=== PATIENT | female | born 1995 | race Caucasian/White ===

== ENCOUNTER 2016-08-13 07:33 | Emergency (ER) ==
[2016-08-13 07:55] LABS: MANUAL DIFF NEEDED? NO
[2016-08-13 08:02] LABS: BASO% 0.2 % (0.0-0.8); EOS# 0.07 X1000 (0.0-0.7); EOS% 1.3 % (0.0-10.0); HEMATOCRIT 38.2 % (37.0-47.0); IMM GRAN# 0.02 X1000 (0.0-0.04); IMM GRAN% 0.4 % (0.0-0.5); LYMPH# 2.38 X1000 (1.2-3.4); LYMPH% 45.2 % (20.5-51.1); MCH 27.6 PG (27-31); MCHC 31.4 g/dL (33-37); MCV 87.8 FL (81-99); MONO% 5.7 % (1.7-9.3); NEUT% 47.2 % (42.2-75.2); PLT 281 X1000 (130-400); RBC 4.35 XMIL (4.2-5.4)
[2016-08-13 08:04] LABS: URINE CULTURE NEEDED? NO; URINE MICRO REVIEW NEEDED? NO; URINE SOURCE CLEAN CATCH
[2016-08-13 08:18] LABS: AGAP 12; ALBUMIN 3.7 g/dL (3.5-5.0); ALKALINE PHOSPHATASE 77 U/L (32-104); AMYLASE 130 U/L (20-200); BUN 11 mg/dL (8-22); CALCIUM 8.4 mg/dL (8.8-10.2); CHLORIDE 104 mmol/L (98-107); COSMO 275; GOT 18 U/L (10-30); GPT 14 U/L (10-36); LIPASE 35 U/L (13-60); SODIUM 138 mmol/L (136-145); TCO2 22 mmol/L (25-35); TOTAL BILIRUBIN 0.27 mg/dL (0.20-1.00); TOTAL PROTEIN 7.1 g/dL (6.3-8.3)
[2016-08-13 08:20] LABS: BILIRUBIN URINE NEGATIVE (NEGATIVE); BLOOD URINE NEGATIVE (NEGATIVE); COLOR YELLOW; GLUCOSE URINE NEGATIVE (NEGATIVE); LEUKOCYTES URINE NEGATIVE (NEGATIVE); NITRITE URINE NEGATIVE (NEGATIVE); PH URINE 5.5; PROTEIN URINE NEGATIVE (NEGATIVE); SP GRAVITY URINE 1.016; TURBIDITY URINE CLEAR (CLEAR); UROBILINOGEN URINE NORMAL (NORMAL)
[2016-08-13 08:22] LABS: UR EPITHELIAL CELLS <10 /HPF (<10); URINE BACTERIA NEGATIVE /HPF; URINE RBC <10 /HPF (<10); URINE WBC <10 /HPF (<10)
[2016-08-13] MEDS ORDERED: ZOFRAN IV ONE (08:57)
[2016-08-13] MEDS ORDERED: NS 1,000 ML IV ONE (08:58)
--- NOTE | 2016-08-13 09:01 | PROVIDER DOCUMENTATION ---
HPI-Abdominal Pain/GI Problem - General Chief Complaint: N/V/D Stated Complaint: n/v/d Time Seen by Provider: 08/13/16 08:50 Source: patient Allergies/Adverse Reactions: Patient Allergies Allergy/AdvReac Type Severity Reaction Status Date / Time cephalexin monohydrate * Allergy RASH Verified 06/26/16 02:21 [From Keflex] ginseng Allergy throat Verified 06/26/16 02:21 swells Home Medications: Home Medication List Medication Instructions Recorded Confirmed Last Taken Type Lamotrigine [Lamictal] 25 mg PO QHS 05/17/16 08/13/16 08/12/16 20:00 History Unity Carbonate 150 mg PO BID 05/17/16 08/13/16 08/12/16 20:00 History - History of Present Illness-ABD Nature of Presenting Problems: Patient 21 y/o F that presents to the ER with generalized abdominal cramping with n/v/d that began last pm around 2200 post eating sesame chicken from [employer]. Pt denies any fever/chills, cough, or body aches. Abdominal Pain Onset Location: reports: generalized abdomen Pain Radiation: reports: no radiation Quality of Pain: reports: aching, cramping Severity in ED: reports: moderate Onset/Duration: reports: gradual, last night (2200) Timing: reports: still present, intermittent Activities at Onset: reports: possible bad food (chicken) Modifying Factors: improves with: nothing Associated Symptoms: reports: diarrhea, nausea, vomiting. denies: back/neck pain, chest pain, constipation, fever/chills, genitourinary problems, muscle aches, shortness of breath Similar Symptoms Previously?: No Recently seen or treated by another doctor?: No Review of Systems - Adult - REVIEW OF SYSTEMS - ADULT Constitutional: denies: chills, fever Eyes: reports: no symptoms reported Ears, Nose, Mouth & Throat: denies: ear pain, sinus problem, throat pain, throat swelling Cardiovascular: denies: chest pain, palpitations, syncope Respiratory: denies: cough, shortness of breath, wheezing Gastrointestinal: reports: abdominal pain, diarrhea, nausea, vomiting Genitourinary: reports: no symptoms reported Musculoskeletal: reports: no symptoms reported Integumentary: reports: no symptoms reported Neurological: reports: no symptoms reported Psychiatric: reports: no symptoms reported Endocrine: reports: no symptoms reported Hematologic/Lymphatic: reports: no symptoms reported Allergic/Immunologic: reports: no symptoms reported All Other Systems: Reviewed and Negative Past History - Adult - PAST MEDICAL HISTORY-ADULT Review of Records: reports: Old Records Reviewed, Nursing Assessment Review, Medications Reviewed Gastrointestinal: reports: GERD, other (nausea) Psychiatric: reports: depression (post-) - PRIOR SURGERIES/PROCEDURES Surgical/Procedure History: reports: 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) - IMMUNIZATION STATUS Childhood Immunizations: See Nurse Assessment Flu Vaccine: See Nurse Assessment - FAMILY HISTORY Family History: reviewed, not pertinent, diabetes - SOCIAL HISTORY Smoking: quit greater than 1 year, cigarettes Alcohol Use Frequency: occasionally Living Situation: family Physical Exam-General - PHYSICAL EXAM-ADULT Initial Vital Signs Reviewed: Yes - CONSTITUTIONAL General Appearance: alert, no apparent distress - EYES Eyes: PERRL/EOMI, pink conjunctivae - HEAD, EARS, NOSE, MOUTH & THROAT HENMT: normocephalic/atraumatic, moist mucous membranes, normal ENT inspection - NECK Neck: non-tender, full range of motion, normal inspection. negative: lymphadenopathy - RESPIRATORY Respiratory: lungs clear, normal breath sounds, no respiratory distress, no accessory muscle use - CARDIOVASCULAR Cardiovascular: normal peripheral pulses, regular rate, rhythm - GASTROINTESTINAL (ABDOMEN) Abdominal Exam: non tender, soft, no organomegaly, no pulsatile mass, abnormal bowel sounds (slightly hypoactive) - MUSCULOSKELETAL Extremity: normal range of motion, normal inspection - SKIN Integumentary: normal color, warm/dry - NEUROLOGIC Neurologic: grossly normal, no motor/sensory deficits - PSYCHIATRIC Psych/Mental Status: normal mood/affect, normal thought content, normal thought process, oriented x 3 Progress - PLAN OF CARE/RESULTS Progress/Plan/Lab Results: plan of care-labs, fluids, meds Vital Signs Temp Pulse Resp BP Pulse Ox 08/13/16 07:40 98.3 F 70 16 109/72 99 cephalexin monohydrate * [From Keflex] Allergy (Verified 06/26/16 02:21) RASH ginseng Allergy (Verified 06/26/16 02:21) throat swells Lamotrigine [Lamictal] 25 mg PO QHS 05/17/16 Unity Carbonate 150 mg PO BID 05/17/16 Dietary Diet NPO Start ThuAug 13 0751 I&O 08/12/16 08/13/16 08/14/16 06:59 06:59 06:59 Output Total 40 Balance -40 Laboratory 08/13/16 08/13/16 08/13/16 07:59 07:44 07:44 WBC 5.26 RBC 4.35 Hgb 12.0 Hct 38.2 MCV 87.8 MCH 27.6 MCHC 31.4 L RDW Std Deviation 14.5 Plt Count 281 MPV 11.0 H Immature Gran % (Auto) 0.4 Neut % (Auto) 47.2 Lymph % (Auto) 45.2 [place] % (Auto) 5.7 Eos % (Auto) 1.3 Baso % (Auto) 0.2 Immature Gran # (Auto) 0.02 Neut # (Auto) 2.48 Lymph # (Auto) 2.38 [place] # (Auto) 0.30 Eos # (Auto) 0.07 Baso # (Auto) 0.01 Sodium Potassium Chloride Carbon Dioxide Anion Gap BUN Creatinine Estimated GFR/1.73 m2 BUN/Creatinine Ratio Glucose Calculated Osmolality Calcium Total Bilirubin AST ALT Alkaline Phosphatase Total Protein Albumin Globulin Albumin/Globulin Ratio Amylase Lipase Serum , Qual NEGATIVE Urine Source CLEAN CATCH Urine Color YELLOW Urine Turbidity CLEAR Urine pH 5.5 Ur Specific [place] 1.016 Urine Protein NEGATIVE Ur Glucose (Stick) NEGATIVE Ur Ketones (Stick) NEGATIVE Urine Blood NEGATIVE Urine Nitrite NEGATIVE Urine Bilirubin NEGATIVE Urobilinogen Dipstick NORMAL Urine Leukocytes NEGATIVE Urine WBC (Auto) <10 Urine RBC (Auto) <10 U Epithel Cells (Auto) <10 Urine Bacteria (Auto) NEGATIVE 08/13/16 07:44 WBC RBC Hgb Hct MCV MCH MCHC RDW Std Deviation Plt Count MPV Immature Gran % (Auto) Neut % (Auto) Lymph % (Auto) [place] % (Auto) Eos % (Auto) Baso % (Auto) Immature Gran # (Auto) Neut # (Auto) Lymph # (Auto) [place] # (Auto) Eos # (Auto) Baso # (Auto) Sodium 138 Potassium 4.0 Chloride 104 Carbon Dioxide 22 L Anion Gap 12 BUN 11 Creatinine 0.8 Estimated GFR/1.73 m2 > 60 BUN/Creatinine Ratio 14 Glucose 101 Calculated Osmolality 275 Calcium 8.4 L Total Bilirubin 0.27 AST 18 ALT 14 Alkaline Phosphatase 77 Total Protein 7.1 Albumin 3.7 Globulin 3.4 Albumin/Globulin Ratio 1.1 Amylase 130 Lipase 35 Serum , Qual Urine Source Urine Color Urine Turbidity Urine pH Ur Specific [place] Urine Protein Ur Glucose (Stick) Ur Ketones (Stick) Urine Blood Urine Nitrite Urine Bilirubin Urobilinogen Dipstick Urine Leukocytes Urine WBC (Auto) Urine RBC (Auto) U Epithel Cells (Auto) Urine Bacteria (Auto) Orders Category Date Time Status Saline Loc DIRECTED Care 08/13/16 07:51 Active Saline Loc NOW Care 08/13/16 08:58 Active NPO Diet 08/13/16 07:51 Active AMYLASE [CHEM] Stat Lab 08/13/16 07:44 Completed CBC WITH ELECTRONIC DIFF [HEME] Stat Lab 08/13/16 07:44 Completed COMPREHENSIVE METABOLIC PANEL [CHEM] Stat Lab 08/13/16 07:44 Completed HCG [ TEST-SERUM] [PREG] Stat Lab 08/13/16 07:44 Completed LIPASE [CHEM] Stat Lab 08/13/16 07:44 Completed URINALYSIS W/POSS RFLX CULT [URINALYSIS] Stat Lab 08/13/16 07:59 Completed 0.9% Sodium Chloride Inj [Ns] 1,000 ml Med 08/13/16 08:58 Active IV 999 mls/hr Diphenhydramine [Benadryl] Med 08/13/16 09:15 Discontinued 50 mg IV NOW ONE Ondansetron [Zofran] Med 08/13/16 08:57 Discontinued 4 mg IV NOW ONE Promethazine [Phenergan] Med 08/13/16 09:15 Discontinued 25 mg IV NOW ONE Sodium Chloride 0.9% Med 08/13/16 09:15 Discontinued 10 ml INJ NOW ONE pt will be d/c home, pt was clinically stable, pt understood instructions and results - REASSESSMENT Reassessment #1 Time Reassessed: 09:28 Status: improving Reassessment Comment: sitting on cell phone Departure - Departure Time of Disposition Order: 09:35 DIAGNOSIS: Nausea vomiting and diarrhea Disposition: HOME 01 Certified Medical Emergency: Emergent Condition: Stable Additional Instructions: ED Follow Up Instructions: You have been treated by a care provider in the Emergency Department. These instructions are being provided to you so you can have an understanding of how to care for yourself upon discharge. Upon discharge from the Emergency Department, you are responsible for making arrangements for follow-up care by a physician of your choice. Take all prescribed medications as directed. Return to the Emergency Department immediately for any new or worsening symptoms. You may call the Physician Referral phone number at [phone] to obtain a list of Physicians who are taking new patients. Instructions: Nausea, Adult, Nausea and Vomiting, Food Choices to Help Relieve Diarrhea, Adult Attestation - Scribe Verification/Attestation Scribe:: Jovi Bird Acting as Scribe for:: Zuhair Koehler Scribe documention review:: This chart was documented by a scribe and accurately reflects the service the provider performed and the decisions made by the provider. Physician Attestation - Physician Attestation I, the provider, attest to the following statement:: Zuhair Koehler Physician documentation Attestation:: This documentation recorded by the scribe accurately reflects the service I personally performed and the decisions made by me.
[2016-08-13] MEDS ORDERED: PHENERGAN IV ONE (09:15)
[2016-08-13] MEDS ORDERED: BENADRYL IV ONE (09:15)
[2016-08-13] MEDS ORDERED: SODIUM CHLORIDE 0.9% INJ ONE (09:15)
[2016-08-13 12:48] VITALS: BP 114/70
== END 2016-08-13 12:45 | disposition home or self-care (01) ==
LOC: ED 07:33
DX: R11.2 Nausea with vomiting, unspecified (principal); R19.7 Diarrhea, unspecified; R10.84 Generalized abdominal pain; R19.15 Other abnormal bowel sounds; Z79.899 Other long term (current) drug therapy; Z89.022 Acquired absence of left finger(s); Z89.021 Acquired absence of right finger(s); Z87.891 Personal history of nicotine dependence
CPT/HCPCS: 80053; 81001; 82150; 83690; 84703; 85025; J1200; J2550; J7030

== ENCOUNTER 2018-12-03 04:55 | Inpatient (IN) ==
[2018-12-03] MEDS ORDERED: PEPCID PO PRN (04:56)
[2018-12-03] MEDS ORDERED: REGLAN PO ONE (04:56)
[2018-12-03] MEDS ORDERED: ZOFRAN IV PRN (04:56)
[2018-12-03] MEDS ORDERED: TYLENOL PO PRN (04:56)
[2018-12-03] MEDS ORDERED: STADOL IV PRN (04:56)
[2018-12-03] MEDS ORDERED: PEPCID IV PRN (04:56)
[2018-12-03] MEDS ORDERED: PEPCID PO ONE (04:56)
[2018-12-03] MEDS ORDERED: PITOCIN 30 UNITS/NS 30 UNIT/500 ML IV.SOLN IV SCH ×2 (05:00→14:45)
[2018-12-03] MEDS ORDERED: SODIUM CHLORIDE 0.9% INJ SCH (05:00)
[2018-12-03] MEDS: LR 1,000 ML IV SCH ×2 (05:50→10:13)
[2018-12-03 06:19] LABS: URINE SOURCE VOIDED
[2018-12-03 06:21] LABS: EOS% 1.5 % (0.0-10.0); HEMATOCRIT 31.2 % (37.0-47.0); HEMOGLOBIN 10.5 g/dL (12.0-16.0); IMM GRAN% 0.3 % (0.0-0.5); LYMPH% 39.1 % (20.5-51.1); MCH 28.8 PG (27-31); MCHC 33.7 g/dL (33-37); MCV 85.5 FL (81-99); MONO% 8.5 % (1.7-9.3); MPV 10.9 FL (7.4-10.4); NEUT% 50.6 % (42.2-75.2); PLT 219 X1000 (130-400); RBC 3.65 XMIL (4.2-5.4); RDW 13.7 % (11.5-14.5); WBC 6.72 X1000 (4.8-10.8)
[2018-12-03 06:22] LABS: IMM GRAN# 0.02 X1000 (0.0-0.04); LYMPH# 2.63 X1000 (1.2-3.4); MONO# 0.57 X1000 (0.11-0.59)
[2018-12-03 06:26] LABS: BILIRUBIN URINE NEGATIVE (NEGATIVE); GLUCOSE URINE NEGATIVE (NEGATIVE); KETONE URINE NEGATIVE (NEGATIVE); SP GRAVITY URINE 1.005
[2018-12-03 06:27] LABS: BLOOD URINE 3+ (NEGATIVE); CLARITY CLEAR (CLEAR); COLOR YELLOW; LEUKOCYTES URINE 2+ (NEGATIVE); NITRITE URINE NEGATIVE (NEGATIVE); PROTEIN URINE 1+(30 mg/dL) mg/dL (NEGATIVE); UROBILINOGEN URINE NORMAL
[2018-12-03 06:38] LABS: UR AMPHETAMINES QUAL NONE DETECTED (NONE DETECT); UR BARBITUATES QUAL NONE DETECTED (NONE DETECT); UR BENZODIAZEPIN QUAL NONE DETECTED (NONE DETECT); UR CANNABINOIDS QUAL NONE DETECTED (NONE DETECT); UR COCAINE QUAL NONE DETECTED (NONE DETECT); UR METHADONE QUAL NONE DETECTED (NONE DETECT); UR METHAMPHETAMINE QUAL NONE DETECTED (NONE DETECT); UR OPIATES QUAL NONE DETECTED (NONE DETECT); UR OXYCODONE QUAL NONE DETECTED (NONE DETECT); UR PCP QUAL NONE DETECTED (NONE DETECT); UR PROPOXYPHENE QUAL NONE DETECTED (NONE DETECT); UR TCA QUAL NONE DETECTED (NONE DETECT)
--- NOTE | 2018-12-03 09:02 | HISTORY AND PHYSICAL ---
HISTORY OF PRESENT ILLNESS: The patient is a 23-year-old white female G4, P3 at 39 and 1/7 weeks gestation with a favorable cervix for induction of labor. Patient's care has been unremarkable to date. Her group B strep culture was negative. PAST MEDICAL HISTORY: Significant for gastroesophageal reflux disease. PAST SURGICAL HISTORY: She had a finger surgery. PAST OB HISTORY: G4, P3. Spontaneous vaginal delivery x3 proven to 8 pounds 9 ounces. PEOPLE GREETER HISTORY: Menarche at age 10. FAMILY HISTORY: Significant for diabetes mellitus, high blood pressure, and breast cancer. REVIEW OF SYSTEMS: All systems reviewed and noncontributory. SOCIAL HISTORY: Tobacco use none. Alcohol use none. MEDICATIONS: Pepcid, ALLERGIES: Ginseng. PHYSICAL EXAMINATION: VITAL SIGNS: Height 5 feet 4 inches, weight 237 pounds, blood pressure 128/87, pulse 100, and respirations 20. heart rate 130s with good [id number] variability. HEENT: Pupils equal, round, and reactive to light and accommodation. Extraocular movements intact. Oropharynx clear. NECK: Supple. No thyromegaly. LUNGS: Clear to auscultation. HEART: Regular rate and rhythm. ABDOMEN: Gravid, nontender. PELVIC: Cervix was dilated 3 cm, 50% effaced, and -2 station. EXTREMITIES: 1+ DTRs bilaterally. Mild lower extremity edema. Cranial nerves 2-12 grossly intact. Motor 5/5. ASSESSMENT AND PLAN: A 23-year-old white female G4, P3 at 39 and 1/7 weeks gestation for induction of labor. The patient may have epidural, but she has decided against this at the present time. We will start Pitocin induction. cc: Loc Salamanca III, MD
[2018-12-03] MEDS ORDERED: FENTANYL-BUPIV-NS 2 MCG-0.1% 200 ML EPIDURAL SCH (10:00)
[2018-12-03] MEDS ORDERED: NAROPIN 0.2% INJ ONE (10:00)
[2018-12-03] MEDS ORDERED: BENADRYL IV PRN (14:33)
[2018-12-03] MEDS ORDERED: NORCO-5 PO PRN (14:33)
[2018-12-03] MEDS ORDERED: M-M-R II VACCINE SUBQ ONE (14:33)
[2018-12-03] MEDS ORDERED: AMBIEN PO PRN (14:33)
[2018-12-03] MEDS ORDERED: HYDROXYZINE IM PRN (14:33)
[2018-12-03] MEDS ORDERED: PERI MEDS (DERMOPLAST/NUPERCAINAL/TUCKS) MISC PRN (14:33)
[2018-12-03] MEDS ORDERED: ATARAX PO PRN (14:33)
[2018-12-03] MEDS ORDERED: CYTOTEC PO PRN (14:33)
[2018-12-03] MEDS ORDERED: MINERAL OIL PO PRN (14:33)
[2018-12-03] MEDS ORDERED: BOOSTRIX VACCINE IM ONE (14:33)
[2018-12-03] MEDS ORDERED: PITOCIN IM PRN (14:33)
[2018-12-03] MEDS ORDERED: BENADRYL PO PRN (14:33)
[2018-12-03] MEDS ORDERED: XYLOCAINE-MPF 1% INJ PRN (14:33)
[2018-12-03] MEDS ORDERED: PITOCIN 20 UNITS/NS 20 UNITS/1,000 ML IV.SOLN IV SCH (14:45)
[2018-12-03] MEDS: MOTRIN PO PRN (20:47)
[2018-12-03] MEDS: PERICOLACE PO SCH (20:47)
--- NOTE | 2018-12-03 20:55 | OPERATIVE NOTE ---
PROCEDURE DATE: 12/03/2018 VAGINAL DELIVERY: DETAILS OF PROCEDURE: Patient progressed to complete and pushing. Had spontaneous vaginal delivery of a female infant, 8 pounds 4 ounce, with Apgars of 9 and 10 at 1413 on 12/03/2018 over intact perineum. Placenta was delivered intact. A 3-vessel cord. Cord blood samples were obtained at this prior to placental delivery. ANESTHESIA: Epidural. ESTIMATED BLOOD LOSS: 150 mL. COUNTS: All counts were correct x 2. cc: Loc Salamanca III, MD MTDD
[2018-12-04] MEDS: NORCO-10 PO PRN (00:40)
[2018-12-04 06:23] LABS: BASO# 0.01 X1000 (0.0-0.2); BASO% 0.1 % (0.0-0.8); EOS# 0.06 X1000 (0.0-0.7); EOS% 0.7 % (0.0-10.0); HEMATOCRIT 29.7 % (37.0-47.0); HEMOGLOBIN 9.3 g/dL (12.0-16.0); IMM GRAN# 0.02 X1000 (0.0-0.04); IMM GRAN% 0.2 % (0.0-0.5); LYMPH# 2.87 X1000 (1.2-3.4); LYMPH% 33.5 % (20.5-51.1); MCH 27.4 PG (27-31); MCHC 31.3 g/dL (33-37); MCV 87.4 FL (81-99); MONO# 1.05 X1000 (0.11-0.59); MONO% 12.3 % (1.7-9.3); MPV 11.7 FL (7.4-10.4); NEUT# 4.56 X1000 (1.4-6.5); NEUT% 53.2 % (42.2-75.2); PLT 195 X1000 (130-400); RDW 13.8 % (11.5-14.5); WBC 8.57 X1000 (4.8-10.8)
[2018-12-04] MEDS: MOTRIN PO PRN ×2 (08:10→16:18)
[2018-12-04] MEDS: FERROUS SULFATE PO SCH (09:08)
[2018-12-04] MEDS: PERICOLACE PO SCH (22:14)
[2018-12-05] MEDS: MOTRIN PO PRN ×2 (00:24→08:59)
--- NOTE | 2018-12-05 08:09 | DISCHARGE SUMMARY ---
ADMISSION DATE: 12/03/2018 DISCHARGE DATE: 12/05/2018 ADMISSION DIAGNOSIS: Intrauterine at 39 weeks with favorable cervix for induction of labor. FINAL DIAGNOSIS: Intrauterine at 39 weeks with favorable cervix for induction of labor with vaginal delivery of a female, 8 pounds 4 ounces, Apgars of 9 and 10 at 1413 on 12/03/2018. PROCEDURES: Spontaneous vaginal delivery. HISTORY OF PRESENT ILLNESS: The patient is a 23-year-old, white female, G 4, P 3, at 39 and 1/7th weeks with a favorable cervix for induction of labor. care has been unremarkable. Group B strep culture was negative. The patient had previously been treated for bipolar but is off her medications at present. PAST MEDICAL HISTORY: Significant for gastroesophageal reflux disease and, as mentioned above, bipolar disorder. PAST SURGICAL HISTORY: Finger surgery. OB HISTORY: G 4, P 3. Spontaneous vaginal delivery x3, proven to 8 pounds 9 ounces. READINESS PARAPROFESSIONAL HISTORY: Menarche at age 10. FAMILY HISTORY: Significant for diabetes mellitus, high blood pressure, and breast cancer. REVIEW OF SYSTEMS: All systems reviewed and noncontributory. SOCIAL HISTORY: Tobacco use, none. Alcohol use, none. MEDICATIONS: Pepcid. ALLERGIES: To ginseng. PHYSICAL EXAMINATION: Vital Signs: Height 5 feet 4 inches, weight 237 pounds, blood pressure 128/87, pulse of 100, respirations 20. heart rate in the 130s with good [id number] variability. HEENT: Pupils equal, round, reactive to light and accommodation. Extraocular movements intact. Oropharynx clear. Neck: Supple. No thyromegaly. Lungs: Clear to auscultation. Heart: Regular rate and rhythm. Abdomen: Gravid, nontender. Pelvic: Cervix was dilated 3 cm, 50% effaced, and -2 station. Extremities: DTRs 1+ bilaterally. Mild lower extremity edema. Cranial nerves 2-12 grossly intact. Motor 5/5. ASSESSMENT AND PLAN: A 23-year-old, white female, 4, para 3, at 39 and 1/7th weeks, for induction of labor. HOSPITAL COURSE: The patient advanced in her labor course and then had a spontaneous vaginal delivery of a female , 8 pounds 4 ounces, with Apgars of 9 and 10 at 1413 on 12/03/2018 over an intact perineum. course was unremarkable. She was able to ambulate and had mild lochia and stable vital signs. Her hemoglobin was 9.3 and hematocrit was 29.7. She was started on iron sulfate. By day #2, it was felt that the patient could be discharged home. DISCHARGE PLANS: The patient be discharged home. She will follow up in 4 weeks at which time we will schedule a bilateral tubal ligation. She was instructed on pelvic rest for 6 weeks. She was given a prescription for [place] 5, Colace, Motrin, and iron sulfate. Patient plans to follow up with her psychiatric physician within 2 weeks from delivery. cc: Loc Salamanca III, MD
[2018-12-05 08:34] VITALS: BP 128/89
[2018-12-05] MEDS: NORCO-10 PO PRN (08:59)
[2018-12-05] MEDS: FERROUS SULFATE PO SCH (08:59)
== END 2018-12-05 11:45 | disposition home or self-care (01) | DRG 807 ==
LOC: P.LD 04:55
PROVIDERS: ADMIT Obstetrics & Gynecology; ATTEND Obstetrics & Gynecology
CPT/HCPCS: 59025; 80104; 80301; 80305; 81003; 85025; 86592; 90707; A9270; G0431; G0434; G0477; J2405; J2590; J2795; J7120